=== PATIENT | male | born 1955 | race Caucasian/White ===

== ENCOUNTER 2016-08-30 18:22 | Emergency (ER) | payer MEDICARE, MEDICAID ==
[2016-08-30 19:00] VITALS: BP 137/73
--- NOTE | 2016-08-30 19:10 | EKG ---
[address] [address] Test Date: 2016-08-30 Test Time: 19:09:52 Pat Name: BRYON CAMERON Department: Room: Gender: M Trim Technician: : [id number] Requested By: BERKLEY RODRIGUEZ Order Number: [id number] Reading MD: Measurements Intervals [place] Rate: 81 P: 10 ND: 168 QRS: 7 QRSD: 82 T: 22 QT: 362 QTc: 421 Interpretive Statements SINUS RHYTHM R-S TRANSITION ZONE IN V LEADS DISPLACED TO THE RIGHT NO SPECIFIC ECG ABNORMALITIES RI6.01 Unconfirmed report No previous ECG available for comparison
[2016-08-30 19:35] LABS: BASO % 1 % (0-3); EOS # 0.2 x10^3/uL (0.0-0.7); EOS % 3 % (0-3); HEMATOCRIT 39.8 % (39.0-53.0); HEMOGLOBIN 13.1 g/dL (13.0-17.5); LYMPH # 1.3 x10^3/uL (1.0-4.8); LYMPH % 20 % (24-48); MEAN CORPUSCULAR HEMOGLOBIN 32 pg (25-35); MEAN CORPUSCULAR HGB CONC 33 g/dL (31-37); MEAN CORPUSCULAR VOLUME 98 fL (79-100); MONO # 1.2 x10^3/uL (0.0-1.1); MONO % 18 % (0-9); NEUT # 3.7 x10^3uL (1.8-7.7); NEUT % 58 % (31-73); PLATELET COUNT 164 x10^3/uL (140-400); RED BLOOD COUNT 4.07 x10^6/uL (4.30-5.70); RED CELL DISTRIBUTION WIDTH 15.9 % (11.5-14.5); WHITE BLOOD COUNT 6.5 x10^3/uL (4.0-11.0)
[2016-08-30 19:47] LABS: ALBUMIN 2.8 g/dL (3.4-5.0); ALBUMIN/GLOBULIN RATIO 0.7 (1.0-1.7); CALCIUM 8.6 mg/dL (8.5-10.1); CREATININE 1.3 mg/dL (0.7-1.3); GFR 56.3; POTASSIUM 4.2 mmol/L (3.5-5.1); TOTAL BILIRUBIN 0.3 mg/dL (0.2-1.0); TOTAL PROTEIN 6.6 g/dL (6.4-8.2)
[2016-08-30 19:58] LABS: AMPHETAMINE/METHAMPHETAMINE NEG (NEG); BARBITURATES NEG (NEG); BENZODIAZEPINES NEG (NEG); CANNABINOIDS NEG (NEG); COCAINE NEG (NEG); METHADONE NEG (NEG); OPIATES NEG (NEG); PHENCYCLIDINE NEG (NEG)
--- NOTE | 2016-08-30 20:00 | PHYS DOC ---
Adult General Chief Complaint Chief Complaint: PSYCH EVALUATION HPI HPI 61-year-old male [facility] patient with dementia presents for psych evaluation. The patient was sent yesterday to [facility] for psych evaluation was medically cleared and sent back to the [facility] apparently, the [facility] staff called our geropsychiatric unit today and were declined so they sent the patient here for medical screening evaluation and possible geropsychiatric placement. According to the [facility] staff the patient has been more aggressive than usual at the [facility]. He has not made any threatening remarks about harming anyone or harming himself. Patient has dementia so history is limited. [] Review of Systems Review of Systems Review of systems is unobtainable secondary to dementia Allergies Allergies Allergies Coded Allergies Type Severity Reaction Last Updated Verified No Known Allergies Allergy Unknown 08/30/16 Yes Physical Exam Physical Exam Constitutional: Well developed, well nourished, no acute distress, non-toxic appearance. [] HENT: Normocephalic, atraumatic, bilateral external ears normal, oropharynx moist, no oral exudates, nose normal. [] Eyes: PERRLA, EOMI, conjunctiva normal, no discharge. [] Neck: Normal range of motion, no tenderness, supple, no stridor. [] Cardiovascular:Heart rate regular rhythm, no murmur [] Lungs & Thorax: Bilateral breath sounds clear to auscultation [] Abdomen: Bowel sounds normal, soft, no tenderness, no masses, no pulsatile masses. [] Skin: Warm, dry, no erythema, no rash. [] Back: No tenderness, no CVA tenderness. [] Extremities: No tenderness, no cyanosis, no clubbing, ROM intact, no edema. [] Neurologic: Awake alert but confused has been ambulating throughout the department without any difficulty. [] Psychologic: Patient has been pleasant and cooperative during his stay in the department. [] Current Patient Data Lab Results Laboratory Tests Test 08/30/16 19:15 White Blood Count 6.5x10^3/uL (4.0-11.0) Red Blood Count 4.07x10^6/uL (4.30-5.70) L Hemoglobin 13.1g/dL (13.0-17.5) Hematocrit 39.8% (39.0-53.0) Mean Corpuscular Volume 98fL (79-100) Mean Corpuscular Hemoglobin 32pg (25-35) Mean Corpuscular Hemoglobin Concent 33g/dL (31-37) Red Cell Distribution Width 15.9% (11.5-14.5) H Platelet Count 164x10^3/uL (140-400) Neutrophils (%) (Auto) 58% (31-73) Lymphocytes (%) (Auto) 20% (24-48) L Monocytes (%) (Auto) 18% (0-9) H Eosinophils (%) (Auto) 3% (0-3) Basophils (%) (Auto) 1% (0-3) Neutrophils # (Auto) 3.7x10^3uL (1.8-7.7) Lymphocytes # (Auto) 1.3x10^3/uL (1.0-4.8) Monocytes # (Auto) 1.2x10^3/uL (0.0-1.1) H Eosinophils # (Auto) 0.2x10^3/uL (0.0-0.7) Basophils # (Auto) 0.0x10^3/uL (0.0-0.2) Platelet Estimate Pending Sodium Level 140mmol/L (136-145) Potassium Level 4.2mmol/L (3.5-5.1) Chloride Level 105mmol/L (98-107) Carbon Dioxide Level 29mmol/L (21-32) Anion Gap 6 (6-14) Blood Urea Nitrogen 18mg/dL (8-26) Creatinine 1.3mg/dL (0.7-1.3) Estimated GFR (Cockcroft-Gault) 56.3 BUN/Creatinine Ratio 14 (6-20) Glucose Level 93mg/dL (70-99) Calcium Level 8.6mg/dL (8.5-10.1) Total Bilirubin 0.3mg/dL (0.2-1.0) Aspartate Amino Transferase (AST) 80U/L (15-37) H Alanine Aminotransferase (ALT) 112U/L (16-63) H Alkaline Phosphatase 54U/L (46-116) Total Protein 6.6g/dL (6.4-8.2) Albumin 2.8g/dL (3.4-5.0) L Albumin/Globulin Ratio 0.7 (1.0-1.7) L Ethyl Alcohol Level < 10mg/dL (0-10) EKG EKG [] Radiology/Procedures Radiology/Procedures [] Course & Med Decision Making Course & Med Decision Making Pertinent Labs and Imaging studies reviewed. (See chart for details) [ED course: Evaluation reveals a 61-year-old demented male that is awake alert and interactive and cooperative. He is not been aggressive in any way during his stay in the department. At this point, I do not feel the patient meets any criteria for general psych admission and will need to be sent back to the [facility].] Dragon Disclaimer Dragon Disclaimer This chart was dictated in whole or in part using Voice Recognition software in a busy, high-work load, and often noisy Emergency Department environment. It may contain unintended and wholly unrecognized errors or omissions. Departure Departure: Impression: Primary Impression: Dementia Disposition: 01 HOME, SELF-CARE Condition: STABLE Patient Instructions: Dementia Additional Instructions: My recommendation is to follow with the [facility] physician this week to consider medication adjustment as the provider sees fit. Continue the antibiotic as prescribed last evening. Return to the emergency part with any new or concerning symptoms. Problem Qualifiers Primary Impression: Dementia Dementia type: unspecified type Dementia behavioral disturbance: with behavioral disturbance Qualified Code: F03.91 - Unspecified dementia with behavioral disturbance BERKLEY RODRIGUEZ DO Aug 30, 2016 20:00
[2016-08-30 20:03] LABS: BILIRUBIN,URINE NEG (NEG); CLARITY,URINE HAZY; COLOR,URINE YELLOW; GLUCOSE,URINE NEG (NEG)
[2016-08-30 20:04] LABS: BACTERIA,URINE 0 /HPF (0-FEW); NITRITE,URINE NEG (NEG); UROBILINOGEN,URINE 1 mg/dL (0.2 mg/dL)
[2016-08-30 22:33] LABS: % EOS 3 % (0-5); % LYMPHS 20 % (24-48); % MONOS 12 % (0-10); % MYELOS 1 % (0-0); % SEGS 64 % (35-66); PLT ESTIMATE ADEQUATE (ADEQUATE)
[2016-08-30 22:35] LABS: POLYCHROMASIA PRESENT
[2016-08-30 22:43] LABS: TARGET CELLS PRESENT
== END 2016-08-30 20:45 | disposition home or self-care (01) ==
LOC: ER 18:22
DX: F03.91 Unspecified dementia, unspecified severity, with behavioral disturbance (principal)
CPT/HCPCS: 36415; 80053; 80305; 80320; 81001; 85007; 85027; 87086; 93005; G0480; G0481; 99285-25